=== PATIENT | female | born 1975 | race African-American/Black ===

== ENCOUNTER 2017-04-17 12:20 | Emergency (ER) | payer OTHER ==
[~2017-04-17] VITALS: Ht 170.2 cm; Wt 87.1 kg
--- NOTE | ~2017-04-17 | CT71 ---
[facility] A Service [facility] RADIOLOGY TEXT RESULTS PATIENT: MEREDITH GARCIA LOCATION: SED : 79 UNIT #: [id number] AGE: [address]: Albino Hanson MD SEX: F ORDER DR: [id number] [place] [id number] E MR#: [id number] Acc #: [id number] NAME: MEREDITH GARCIA : 1975 SEX: F STUDY DATE/TIME: 04/17/2017 14:19 UNIT: SED ROOM: STUDY DESCRIPTION: CT Head Wo Contrast Attending Physician: Albino Hanson M.D. Ordering Physician: Albino Hanson M.D. MEDICAL IMAGING REPORT This report is preliminary unless electronic signature is present. EXAM CT head 04/17/2017 HISTORY Migraines. Hypertension. Hypertension, dizzy, lightheaded x1 day. TECHNIQUE CT head performed skull base through vertex without intravenous contrast. This CT exam was performed with one or more of the following radiation dose reduction techniques: automatic exposure control, adjustment of mA and/or kV according to patient size, and iterative reconstruction. COMPARISON STUDIES 04/15/2012. FINDINGS The brainstem is unremarkable. Some images degraded by streak artifact. The cerebellum and cerebral hemispheres show normal alvarez matter-white matter differentiation. No hemorrhage. No evidence of acute cortical ischemia. Midline structures are nondisplaced and the basal ganglia are intact. No intra- or extraaxial mass effect or abnormal intracranial fluid collection. The intraorbital soft tissues are unremarkable. The visualized paranasal sinuses and mastoid air cells are clear. No fracture. IMPRESSION 1. Normal CT of the head. If the patient has ongoing neurologic symptoms, consider follow-up imaging. No significant change in appearance compared to 04/15/2012. [facility] A Service [facility] RADIOLOGY TEXT RESULTS PATIENT: MEREDITH GARCIA LOCATION: SED : 79 UNIT #: [id number] AGE: [address]: Albino Hanson MD SEX: F ORDER DR: Dictated by... Norberto Santoro M.D. THIS IS AN ELECTRONICALLY VERIFIED REPORT Norberto Santoro M.D. at 04/18/2017 6:15 PM Pratik TD: 04/17/2017 20:32 JOB #: [id number] MEDICAL IMAGING REPORT Page 1 of 1
--- NOTE | ~2017-04-17 | EKG ---
PATIENT: MEREDITH GARCIA UNIT #: [id number] Ventricular Rate: 97 BPM Atrial Rate: 97 BPM P-R Interval: 142 ms QRS Duration: 92 ms Q-T Interval: 366 ms QTC Calculation(Bezet): 464 ms P Herrick: 59 degrees Calculated R Herrick: 24 degrees Calculated T Herrick: 35 degrees Diagnosis Line: Normal sinus rhythm Diagnosis Line: Normal ECG Diagnosis Line: When compared with ECG of 01-MAR-2016 13:52, Diagnosis Line: No significant change was found Diagnosis Line: Confirmed by FERNANDO WILLSON MD ([id number]) on Diagnosis Line: 04/20/2017 11:11:29 AM INTERPRETING MD: ANAMIKA NEGRETE
[~2017-04-17 12:20] MED LIST: AMLODIPINE BESYL5 MG PO; ANTIVERT PO; BACTRIM DS TABL1 TA1 PO; CAPOZIDE PO; CATAPRES-TTS-10.1 MG PO; FLEXERIL PO; HYDROCHLOROTH12.5 MG PO; HYDROCHLOROTHIA25 MG PO; IBUPROFEN800 MG PO; IMITREX25 MG PO; LANTUS100 U/ML SUBQ; LANTUS100 UNITS/ SUBQ; LISINOPRIL20 MG PO; LOSARTAN PO; NAPROXEN PO; NORVASC10 MG PO; ORUDIS75 M1 PO; PHENERGAN25 MG PO; PROCARDIA XL PO; PROPRANOLOL HCL20 MG PO; ULTRAM PO; UNKNOWN BP MED; VICODIN 5/1 TAB 5/50 PO
== END 2017-04-17 15:25 | disposition home or self-care (01) ==
LOC: SED 12:20
DX: G43.909 Migraine, unspecified, not intractable, without status migrainosus (principal); J01.00 Acute maxillary sinusitis, unspecified; J01.20 Acute ethmoidal sinusitis, unspecified; E11.9 Type 2 diabetes mellitus without complications; I10 Essential (primary) hypertension; Z79.899 Other long term (current) drug therapy
CPT/HCPCS: 70450; 82947; 84703; 93005; 99284